=== PATIENT | female | born 1985 | race Two or more races ===

== ENCOUNTER 2017-01-07 08:51 | Emergency (ER) | payer SELFPAY ==
[~2017-01-07] VITALS: Ht 149.9 cm; Wt 63.5 kg
--- NOTE | 2017-01-07 10:10 | ED.ADGEN ---
Adult General Chief Complaint Chief Complaint: VAGINAL BLEEDING HPI HPI Patient is a 31 year old female who presents with vaginal bleeding since last night. Pt is 11 weeks based on LMP 10/21/2016. 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 OB at [facility]. Denies any associated pain or other discharge. Review of Systems Review of Systems Constitutional: Denies fever or chills. [] Eyes: Denies change in visual acuity. [] HENT: Denies nasal congestion or sore throat. [] Respiratory: Denies cough or shortness of breath. [] Cardiovascular: Denies chest pain or edema. [] GI: Denies abdominal pain, nausea, vomiting, bloody stools or diarrhea. [] : Denies dysuria. [] Musculoskeletal: Denies back pain or joint pain. [] Integument: Denies rash. [] Neurologic: Denies headache, focal weakness or sensory changes. [] Allergies Allergies Allergies Coded Allergies Type Severity Reaction Last Updated Verified No Known Drug Allergies 01/07/17 No Physical Exam Physical Exam Constitutional: Well developed, well nourished, no acute distress, non-toxic appearance. [] HENT: Normocephalic, atraumatic, bilateral external ears normal, oropharynx moist, no oral exudates, nose normal. [] Eyes: PERRLA, EOMI, conjunctiva normal, no discharge. [] Neck: Normal range of motion, no tenderness, supple, no stridor. [] Cardiovascular:Heart rate regular with regular rhythm, no murmur [] Lungs & Thorax: Bilateral breath sounds clear to auscultation [] Abdomen: Bowel sounds normal, soft, no tenderness, no masses, no pulsatile masses.\ : closed cervix, mild bleeding, no other dc, no CMT or adnexal ttp Skin: Warm, dry, no erythema, no rash. [] Back: No tenderness, no CVA tenderness. [] Extremities: No tenderness, no cyanosis, no clubbing, ROM intact, no edema. [] Neurologic: Alert and oriented X 3, normal motor function, normal sensory function, no focal deficits noted. [] Psychologic: Affect normal, judgement normal, mood normal. [] Current Patient Data Vital Signs Vital Signs Date Time Temp Pulse Resp B/P Pulse Ox O2 Delivery O2 Flow Rate FiO2 01/07/17 13:40 96 18 128/75 100 01/07/17 10:00 98.2 Room Air 98.2 Lab Values Laboratory Tests Test 01/07/17 09:48 01/07/17 10:45 01/07/17 11:05 POC Urine HCG, Qualitative Hcg positive (Negative) Urine Collection Type U cath Urine Color Yellow Urine Clarity Clear Urine pH 8.0 Urine Specific [place] 1.010 Urine Protein Negativemg/dL (NEG-TRACE) Urine Glucose (UA) Negativemg/dL (NEG) Urine Ketones (Stick) Negativemg/dL (NEG) Urine Blood Small (NEG) Urine Nitrite Negative (NEG) Urine Bilirubin Negative (NEG) Urine Urobilinogen Dipstick 0.2mg/dL (0.2 mg/dL) Urine Leukocyte Esterase Negative (NEG) Urine RBC 3-5/HPF (0-2) Urine WBC 1-4/HPF (0-4) Urine Squamous Epithelial Cells Few/LPF Urine Bacteria Few/HPF (0-FEW) Maternal Serum HCG Beta Subunit 7896mIU/mL (0-6) H Microbiology 01/07/17 Wet Prep - Final, Complete EKG EKG [] Radiology/Procedures Radiology/Procedures OB US: Early OB ultrasound History: Vaginal bleeding with . Technique: Real-time grayscale sonographic images of the gravid uterus were performed transabdominally. Endovaginal imaging was not performed secondary to patient discomfort. Comparison: None. Findings: Uterus measures 12.7 cm in length. Saclike fluid collection is seen within the endometrial canal. No convincing yolk sac or embryonic pole is identified. Assuming this is a gestational sac, mean sac diameter is 1.32 cm which would correspond to 6 weeks 1 day. Estimated date of delivery based on this measurement would be September 01, 2017. Right ovary measures 1.8 x 4.0 x 2.1 cm. Left ovary measures 2.0 x 2.7 x 1.3 cm. Bilateral ovaries are without evidence of torsion. Impression: 1. Saclike fluid collection is present in the endometrial canal, although no yolk sac or embryonic pole is identified. No adnexal masses or free pelvic hemorrhage is identified. Statistically, most common etiology would be very early intrauterine . As no definite intrauterine is identified, ectopic cannot be entirely excluded. Recommend serial beta hCG levels and pelvic ultrasound as clinically indicated. [] Course & Med Decision Making Course & Med Decision Making Pertinent Labs and Imaging studies reviewed. (See chart for details) RH +, explained results and need to f/u. Lab asked for Group B strep culture and this was placed. Return precautions given. Diagnosis: vaginal bleeding in , threatened Dragon Disclaimer Dragon Disclaimer This electronic medical record was generated, in whole or in part, using a voice recognition dictation system. ANABEL LUNDY MD Jan 07, 2017 10:09
[2017-01-07 11:07] LABS: BACTERIA,URINE FEW /HPF (0-FEW); BILIRUBIN,URINE NEGATIVE (NEG); GLUCOSE,URINE NEGATIVE (NEG); NITRITE,URINE NEGATIVE (NEG); PROTEIN,URINE NEGATIVE (NEG-TRACE); SQUAMOUS EPITHELIAL CELL,UR FEW /LPF; UROBILINOGEN,URINE 0.2 mg/dL (0.2 mg/dL)
--- NOTE | 2017-01-07 12:33 | RAD ---
Early OB ultrasound History: Vaginal bleeding with . Technique: Real-time grayscale sonographic images of the gravid uterus were performed transabdominally. Endovaginal imaging was not performed secondary to patient discomfort. Comparison: None. Findings: Uterus measures 12.7 cm in length. Saclike fluid collection is seen within the endometrial canal. No convincing yolk sac or embryonic pole is identified. Assuming this is a gestational sac, mean sac diameter is 1.32 cm which would correspond to 6 weeks 1 day. Estimated date of delivery based on this measurement would be September 01, 2017. Right ovary measures 1.8 x 4.0 x 2.1 cm. Left ovary measures 2.0 x 2.7 x 1.3 cm. Bilateral ovaries are without evidence of torsion. Impression: 1. Saclike fluid collection is present in the endometrial canal, although no yolk sac or embryonic pole is identified. No adnexal masses or free pelvic hemorrhage is identified. Statistically, most common etiology would be very early intrauterine . As no definite intrauterine is identified, ectopic cannot be entirely excluded. Recommend serial beta hCG levels and pelvic ultrasound as clinically indicated.
[2017-01-07 13:40] VITALS: BP 128/75
--- NOTE | 2017-01-09 16:21 | VNOTE ---
CALL BACK NOTE CALL BACK Microbiology 01/07/17 Group B Streptococcus Culture - Final, Complete Patient's wet prep is positive for strep B. Patient is hence needs to be treated, I contacted patient, she states she does not speak or understand [place]. Information given to the nursing staff development coordinator to contact patient. SIDDHARTH ALCAZAR APRN Jan 09, 2017 16:21
== END 2017-01-07 14:38 | disposition home or self-care (01) ==
LOC: ER 08:51
DX: O20.0 Threatened abortion (principal); Z3A.11 11 weeks gestation of pregnancy
CPT/HCPCS: 36415; 76801; 81001; 81025; 84702; 86850; 86900; 86901; 87070; 87491; 87591; 99285; Q0111